=== PATIENT | female | born 1995 | race Caucasian/White ===

== ENCOUNTER 2016-11-04 20:45 | Emergency (ER) | payer BC ==
--- NOTE | 2016-11-04 20:38 | EDPHY ---
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 Per EMS, friends found her intoxicated and difficult to wake since 14:00 this afternoon, 6.5 hours ago. According to her friends she has been "in and out of consciousness and vomiting all day" but has become more lucid since then. EMS brought her to the ED rather than detox because she was unable to answer what city she is in. Her story is equally inconsistent for me and she refuses to give contact information for her family or even a sober friend to pick her up. Patient denies any injuries denies loss of consciousness denies any recent trauma. Patient denies co-ingestion patient denies suicidal or homicidal behavior. She is ambulatory without assistance. REVIEW OF SYSTEMS: A 10 point review of systems was performed and is negative with the exception of the elements mentioned in the history of present illness. PHYSICAL EXAM: General Appearance: Alert, well hydrated, oriented x2-3, and non-toxic appearing. Head: Atraumatic without scalp tenderness or obvious injury Eyes: Pupils equal, round, reactive to light and accommodation, EOMI, no trauma , no injection. Ears: Clear bilaterally, no perforation, normal landmarks Nose: Atraumatic, no rhinorrhea, clear. Throat: There is no erythema or exudates, no lesions, normal tonsils, mucus membranes moist. Neck: Supple, nontender, no lymphadenopathy. Respiratory: No retractions, no distress, no wheezes, and no accessory muscle use. Lungs are clear to auscultation bilaterally. Cardiovascular: Regular rate and rhythm, no murmurs, rubs, or gallops. Good capillary refill all extremities. Gastrointestinal: Abdomen is soft, nontender, non-distended, no masses, no rebound, no guarding, no peritoneal signs. Musculoskeletal: Normal active ROM of all extremities, atraumatic. Neurological: Alert, oriented x2-3, and interactive. The patient has normal DTRs and non-focal cranial nerves, motor, sensory, and cerebellar exam. Skin: No rashes, good turgor, no nodules on palpation. PAST MEDICAL HISTORY: Hypertension PAST SURGICAL HISTORY: None SOCIAL HISTORY: Student MEDICAL DECISION MAKING: I serially examined this patient since the patient's arrival here in the emergency department. The patient continues to become more and more sober with each examination. I serially questioned the patient and the patient's story given initially has not changed. The patient still denies any trauma, any head injury, and any illicit drug use. At this point, the patient is walking the department freely and is clinically sober. We're discharging the patient to the [facility] in stable condition. (Danie Posey) 9pm: sitting up, eating. Waiting for a ride home. (Camryn Ramos) Departure - Departure Disposition: Home, Routine, Self-Care Clinical Impression: Alcoholic intoxication Qualifiers: Complication of substance-induced condition: uncomplicated Qualified Code(s): F10.120 - Alcohol abuse with intoxication, uncomplicated Condition: Good Instructions: Alcohol Intoxication (ED) Additional Instructions: Avoid abuse of alcohol. Follow up with your primary care provider for symptoms unimproved over the weekend. Referrals: LISA Davis,. [Clinic] - As per Instructions Report Scribed for: Danie Posey Report Scribed by: Zaria Kelley Date of Report: 11/04/16 Time of Report: 20:51
[2016-11-04 20:56] VITALS: TEMP 98.1
[2016-11-05 00:09] VITALS: BP 121/67; PULSE 68; RESP 16; O2SAT 98
== END 2016-11-05 00:10 | disposition home or self-care (01) ==
DX: F10.120 Alcohol abuse with intoxication, uncomplicated (principal); I10 Essential (primary) hypertension

== ENCOUNTER 2019-01-06 21:30 | Emergency (ER) | payer BC ==
[2019-01-06 21:35] VITALS: BP 128/76
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
== END 2019-01-06 22:29 | disposition home or self-care (01) ==
PROC: 0HQ0XZZ Repair Scalp Skin, External Approach (ICD-10-PCS; principal; 2019-01-06)
DX: S01.01XA Laceration without foreign body of scalp, initial encounter (principal); V18.0XXA Pedal cycle driver injured in noncollision transport accident in nontraffic accident, initial encounter; Y93.55 Activity, bike riding; Z88.0 Allergy status to penicillin